=== PATIENT | female | born 1990 | race American Indian/Alaskan Native ===

== ENCOUNTER 2021-09-21 01:51 | Emergency (ER) | payer SELFPAY ==
[2021-09-21 02:43] LABS: CHLORIDE,CL 103 mmol/L (98-107); ESTIMATED GFR > 60; SODIUM,NA 136 mmol/L (136-145)
[2021-09-21 02:49] LABS: AMPHETAMINES,URINE NEGATIVE (NEGATIVE); BARBITURATES,URINE NEGATIVE (NEGATIVE); BENZODIAZEPINE,URINE NEGATIVE (NEGATIVE); MDMA (ECSTASY), URINE NEGATIVE (NEGATIVE); METHADONE,URINE NEGATIVE (NEGATIVE); METHAMPHETAMINES,URINE POSITIVE (NEGATIVE); OPIATES,URINE NEGATIVE (NEGATIVE); OXYCODONE,URINE NEGATIVE (NEGATIVE); PHENCYCLIDINE,URINE NEGATIVE (NEGATIVE); TCA,URINE NEGATIVE (NEGATIVE)
[2021-09-21 03:11] LABS: CORONAVIRUS COVID-19 NAA POSITIVE (NEGATIVE)
[2021-09-21] MEDS: MVI, Adult with Vitamin K 10 ML, Folic Acid 1 MG, Thiamine 100 MG in Lactated Ringers 1... IV ONE ×4 (03:27)
[2021-09-21] MEDS: Potassium Chloride 20 MEQ in Premix Bag 1 BAG IV ONE (03:27)
[2021-09-21] MEDS: Acetaminophen 325 MG Tab PO ONE (05:58)
== END 2021-09-21 08:00 | disposition home or self-care (01) ==
LOC: DL.ED 01:51
DX: S22.32XA Fracture of one rib, left side, initial encounter for closed fracture (principal); U07.1 COVID-19; F10.129 Alcohol abuse with intoxication, unspecified; F15.10 Other stimulant abuse, uncomplicated; D50.0 Iron deficiency anemia secondary to blood loss (chronic); Z72.0 Tobacco use; Y90.8 Blood alcohol level of 240 mg/100 ml or more; Y04.0XXA Assault by unarmed brawl or fight, initial encounter
CPT/HCPCS: 0240U; 36415; 70450; 71260; 72125; 74177; 80053; 80305; 80307; 81003; 82140; 82150; 82272; 83605; 83690; 83735; 84703; 85025; 85610; 86850; 86900; 86901; 87040; 93005; 93010; 96365; 96366; 96368; 99283; 99285; A9270; J3411; J3480; J7120; J3490

== ENCOUNTER 2021-11-28 04:08 | Emergency (ER) | payer SELFPAY ==
[2021-11-28 06:06] LABS: ANION GAP 14.6 mEq/L (7-13); CHLORIDE,CL 104 mmol/L (98-107); SODIUM,NA 141 mmol/L (136-145)
[2021-11-28 06:11] LABS: AMPHETAMINES,URINE NEGATIVE (NEGATIVE); BARBITURATES,URINE NEGATIVE (NEGATIVE); BENZODIAZEPINE,URINE NEGATIVE (NEGATIVE); MDMA (ECSTASY), URINE NEGATIVE (NEGATIVE); METHADONE,URINE NEGATIVE (NEGATIVE); METHAMPHETAMINES,URINE POSITIVE (NEGATIVE); OPIATES,URINE NEGATIVE (NEGATIVE); OXYCODONE,URINE NEGATIVE (NEGATIVE); PHENCYCLIDINE,URINE NEGATIVE (NEGATIVE); TCA,URINE NEGATIVE (NEGATIVE)
== END 2021-11-28 06:29 ==
LOC: DL.ED 04:08
DX: S06.0X0A Concussion without loss of consciousness, initial encounter (principal); S30.1XXA Contusion of abdominal wall, initial encounter; S40.011A Contusion of right shoulder, initial encounter; R82.5 Elevated urine levels of drugs, medicaments and biological substances; F15.10 Other stimulant abuse, uncomplicated; F10.10 Alcohol abuse, uncomplicated; F17.210 Nicotine dependence, cigarettes, uncomplicated; Y04.0XXA Assault by unarmed brawl or fight, initial encounter
CPT/HCPCS: 36415; 80053; 80305-QW; 80307; 81001; 84703; 85025; 99283